=== PATIENT | female | born 1985 | race African-American/Black ===

== ENCOUNTER 2018-04-20 12:11 | Emergency (ER) | payer OTHER, SELFPAY ==
[~2018-04-20] VITALS: Ht 157.5 cm; Wt 49.3 kg
--- NOTE | 2018-04-20 12:33 | NUR ---
FIRST CONTACT WITH PATIENT, PATIENT C/O CP, SOB, BILAT UPPER/LOWER EXT TINGLING STARTING TODAY AT 0200. LIQUEFIED PETROLEUM GASFITTER ON PATIENT, NADN. A+OX4. DENIES CARDIAC HX. AWAITING MD ORDERS, CALL LIGHT WITHIN REACH.
[2018-04-20] MEDS ORDERED: SODIUM CHLORIDE FLUSH 10ML SYR IVF ONE (13:00)
--- NOTE | 2018-04-20 13:33 | NUR ---
IV ESTABLISHED, PATIENT SITTING COMFORTABLY ON [facility]. FRIEND AT BEDSIDE.
[2018-04-20 13:50] LABS: BASOPHILS # (AUTO) 0.03 x10^3/uL (0-0.1); BASOPHILS % (AUTO) 1 % (0-1); EOSINOPHILS # (AUTO) 0.24 x10^3/uL (0-0.4); EOSINOPHILS % (AUTO) 3 % (1-7); LYMPHOCYTES # (AUTO) 1.67 x10^3/uL (1-3.4); LYMPHOCYTES % (AUTO) 24 % (22-44); MD NO; MEAN CORPUSCULAR HEMOGLOBIN 25.1 pg (27.0-34.8); MEAN CORPUSCULAR HGB CONC 32.6 g/dL (32.4-35.8); MEAN CORPUSCULAR VOLUME 76.9 fL (80-100); MEAN PLATELET VOLUME 9.1 fL (7.4-10.4); MICROSCOPIC NOT IND; MONOCYTES # (AUTO) 0.26 x10^3/uL (0.2-0.8); MONOCYTES % (AUTO) 4 % (2-9); NEUTROPHILS # (AUTO) 4.65 x10^3/uL (1.8-6.8); NEUTROPHILS % (AUTO) 68 % (42-75); PLATELET COUNT 356 x10^3/uL (130-400); RED CELL DISTRIBUTION WIDTH 16.9 % (9.6-15.2)
[2018-04-20 13:52] LABS: CULTURE INDICATED? NO
[2018-04-20 14:00] LABS: ALANINE AMINOTRANSFERASE 14 U/L (12-78); ALBUMIN 3.9 g/dL (3.4-5.0); ANION GAP 6 mmol/L (5-15); CALCIUM 8.9 mg/dL (8.5-10.1); CHLORIDE 110 mmol/L (98-107); CREATININE 0.83 mg/dL (0.55-1.02)
[2018-04-20 14:03] LABS: D-DIMER < 0.19 ug/mlFEU (0.00-0.52); INTERNATIONAL NORMALIZED RATIO 1.03 (0.93-1.1); PROTHROMBIN TIME 10.9 Seconds (9.6-11.5)
[2018-04-20 14:09] LABS: ALKALINE PHOSPHATASE 55 U/L (45-117); BILIRUBIN,TOTAL 0.6 mg/dL (0.2-1.0); C-REACTIVE PROTEIN, QUANT 0.48 mg/dL (0.02-0.49); T4 (THYROXINE) 9.3 mcg/dL (4.8-13.9); TROPONIN I < 0.015 ng/mL (0.000-0.045)
--- NOTE | 2018-04-20 14:38 | NUR ---
RESULTS BACK, CHART UP FOR RECHECK.
[2018-04-20 14:45] VITALS: BP 110/71
--- NOTE | 2018-04-20 15:12 | NUR ---
SBAR report received from RNCathryn. Pt resting on [facility], to be medicated per MAY.
[2018-04-20] MEDS ORDERED: MAALOX/HYOSCYAMINE/LIDOCAINE 45 ML BTL ONE (15:16)
--- NOTE | 2018-04-20 15:22 | NUR ---
Pt medicated, per MAR, and aware of plan to be discharged.
[2018-04-20] MEDS ORDERED: MAALOX/HYOSCYAMINE/LIDOCAINE 45 ML BTL PO ONE (15:30)
--- NOTE | 2018-04-20 15:31 | NUR ---
Patient/Caregiver given discharge instructions and they have confirmed that they understand the instructions. Patient ambulatory with steady gait.
== END 2018-04-20 15:32 | disposition home or self-care (01) ==
LOC: ED 12:57
DX: R07.2 Precordial pain (principal)
CPT/HCPCS: 36415; 71045; 80053; 81003; 83735; 84436; 84443; 84484; 84703; 85025; 85379; 85610; 85651; 86140; 93005; 99284